=== PATIENT | female | born 1955 | race Caucasian/White ===

== ENCOUNTER → 2017-11-29 | Outpatient (CLI) | payer BC | LOC: RESP 10:06 | PROVIDERS: ATTEND Orthopaedic Surgery | DX: Z01.818 Encounter for other preprocedural examination (principal) ==

== ENCOUNTER → 2017-11-29 | Outpatient (CLI) | payer BC ==
--- NOTE | 2017-11-29 17:57 | RAD ---
EXAM DESCRIPTION: Knee,Left Complete CLINICAL HISTORY: 62 years, Female, PAIN IN LEFT KNEE COMPARISON: None TECHNIQUE: 4 views of the left knee FINDINGS: No fracture or dislocation. Bones appear mildly osteopenic except for sclerosis and eburnation of the medial tibial plateau and medial femoral condyle. Severe narrowing of the medial compartment on standing views with mild flexion. Large osteophytes are seen at the medial more than lateral joint line. Varus configuration of the tibia seen due to complete cartilage loss in the medial compartment. Spurring of the intercondylar notch and tibial spines is noted. Lateral view shows normal position of the patella. No patellar spurring or enthesopathy. No suprapatellar knee joint effusion. Normal contour of quadriceps and patellar tendons. Mild lateral patellar tilt without subluxation on patellar sunrise view. Prominent spurring is seen at the lateral patellofemoral joint. Large medial femoral condylar osteophyte is visible. IMPRESSION: Negative for fracture or dislocation. Severe osteoarthrosis with evidence of long standing complete cartilage loss of the medial compartment. Electronically signed by: Humberto Parry MD 11/29/2017 5:54 PM CDT
--- NOTE | 2017-11-29 18:00 | RAD ---
EXAM DESCRIPTION: Knee,Right Complete CLINICAL HISTORY: 62 years, Female, PAIN IN RIGHT KNEE COMPARISON: None TECHNIQUE: 4 views of the right knee, standing views FINDINGS: No fracture or dislocation. Bones appear mildly osteopenic except for sclerosis and eburnation of the medial femoral condyle. Prominent medial and lateral joint line osteophytes are present with moderate tibial spine spurring. Marked narrowing of the medial more than lateral compartments on frontal view. Lateral view shows normal position of the patella. Prominent patellar spurring without anterior enthesopathy. Prominent anterior femoral trochlear spurring. Small suprapatellar knee joint effusion is suspected. Normal contour of quadriceps and patellar tendons. Prominent spurring of the posterior femoral condyles. Mild lateral patellar tilt without subluxation on patellar sunrise view. Prominent spurring is seen along the lateral patellofemoral joint with prominent medial femoral condylar spur. IMPRESSION: Negative for fracture or dislocation. Advanced osteoarthrosis of the right knee. Electronically signed by: Humberto Parry MD 11/29/2017 5:58 PM CDT
--- NOTE | 2017-11-29 18:01 | RAD ---
EXAM DESCRIPTION: Pelvis CLINICAL HISTORY: 62 years Female, PAIN IN BILATERAL HIPS COMPARISON: None. TECHNIQUE: Single AP view of the pelvis and hips FINDINGS: Severe degenerative changes are seen at the pubic symphysis with vacuum phenomenon and surrounding sclerosis. No fracture of the bones of the pelvis or bony destructive lesion. Degenerative changes are prominent in the inferior right SI joint. Degenerative changes are seen in the lower lumbar spine. Proximal femurs appear intact with no fracture or hip dislocation. IMPRESSION: Negative for fracture or dislocation. Electronically signed by: Humberto Parry MD 11/29/2017 5:59 PM CDT
== END ==
LOC: RAD 08:39
PROVIDERS: ATTEND Orthopaedic Surgery
DX: M17.0 Bilateral primary osteoarthritis of knee (principal); M25.561 Pain in right knee; M25.562 Pain in left knee; M25.551 Pain in right hip; M25.552 Pain in left hip

== ENCOUNTER 2018-01-21 05:42 | Inpatient (IN) | payer BC ==
--- NOTE | 2018-01-20 10:16 | HP ---
CHIEF COMPLAINT: Knee pain. HISTORY OF PRESENT ILLNESS: Jennifer is a 62-year-old female with a history of severe knee pain. She has had conservative measures, however, has failed to gain relief. Because of her failure of relief and difficulty with daily activities, she has requested operative intervention. After discussing the risks, benefits and alternatives to that, the patient has given informed consent for total knee arthroplasty. PAST SURGICAL HISTORY: 1. Cystectomy. 2. Hysterectomy. 3. Appendectomy. 4. Mastectomy. 5. Breast reconstruction. MEDICATIONS: 1. Metformin. 2. Hydrochlorothiazide. 3. Labetalol. 4. Furosemide. 5. Januvia. 6. Anastrazole. 7. Gabapentin. 8. Thyroid medication. 9. Insulin. 10. Lyrica. ALLERGIES: PENICILLIN. CODE STATUS: Full code. IMMUNIZATIONS: Up to date. SOCIAL HISTORY: The patient does not drink, smoke or use any illicit drugs. FAMILY HISTORY: None pertinent to today's complaint. REVIEW OF SYSTEMS: Negative except as indicated in the History of Present Illness. PHYSICAL EXAMINATION: VITAL SIGNS: Blood pressure 169/139. Pulse 81. Height 5'4". Weight 269 pounds. MENTAL STATUS: The patient is awake, alert, and is able to give a good history and participate in the physical. The patient is oriented to person, place and time. SKIN: Normal tone and turgor. HEENT: Normocephalic, atraumatic. Pupils equal, round and reactive. Mucosal membranes are moist. NECK: Normal range of motion. No thyromegaly, no lymphadenopathy. CHEST: Normal respiratory excursion. CARDIAC: Regular rate and rhythm. No murmurs, rubs or gallops. MUSCULOSKELETAL: She has full range of motion in both upper extremities. She has intact sensation in both upper extremities. They are warm and well perfused. There is no deformity and no crepitus. The left lower extremity shows full range of motion of the hip. She has crepitus with range of motion of the knee. She has no varus/valgus or anterior/posterior laxity. Sensation is intact. It is warm and well perfused. She has varus deformity. The right knee shows severe pain with palpation. She has full range of motion of the hip. She has full extension today with flexion to about 115 degrees. There is no varus/valgus or anterior/posterior laxity. There is a varus deformity. IMAGING: X-rays show severe degenerative arthritis with bilateral varus deformity. ASSESSMENT: 1. Osteoarthritis. PLAN: The plan at this point is for total knee arthroplasty. We have discussed the risks, benefits, and alternatives to that and the patient has given informed consent. #[id number] [facility]
[2018-01-21] MEDS ORDERED: TRANEXAMIC ACID 1,000 MG/10 ML VIAL ONE ×2 (06:03→06:04)
[2018-01-21] MEDS ORDERED: ceFAZolin SODIUM 1 GM VIAL ONE ×2 (06:03→06:12)
[2018-01-21] MEDS ORDERED: VANCOMYCIN HCL INJ 1,000 MG VIAL IVPB ONE ×2 (06:03→16:49)
[2018-01-21] MEDS ORDERED: SODIUM CHL 0.9% 100ML MINI-BAG 100 ML IVPB ONE (06:03)
[2018-01-21] MEDS ORDERED: LACTATED RINGERS 1,000 ML ONE ×3 (06:03→09:00)
[2018-01-21] MEDS ORDERED: SODIUM CHLORIDE 0.9% 100ML 100 ML IVPB ONE (06:04)
[2018-01-21] MEDS ORDERED: SODIUM CHLORIDE 0.9% 250ML 250 ML ONE ×2 (06:04→16:48)
[2018-01-21] MEDS ORDERED: MORPHINE SULFATE *EPIDURAL* 0.5 MG/ML VIAL ONE (06:30)
[2018-01-21] MEDS ORDERED: fentaNYL CITRATE INJ 50 MCG/ML AMP ONE (06:30)
[2018-01-21] MEDS ORDERED: MIDAZOLAM INJ 2 MG/2 ML VIAL ONE (06:31)
[2018-01-21] MEDS ORDERED: LIDOCAINE 2 % GEL 5 ML TUBE TOP ONE (06:31)
[2018-01-21] MEDS ORDERED: BISACODYL SUPPOSITORY 10 MG PR PRN (07:16)
[2018-01-21] MEDS ORDERED: MORPHINE SULFATE INJ 10 MG/ML VIAL IM PRN (07:16)
[2018-01-21] MEDS ORDERED: PROMETHAZINE HCL INJ 25 MG in SODIUM CHLORIDE 0.9% 50ML 50 ML IVPB PRN (07:16)
[2018-01-21] MEDS ORDERED: NALOXONE HCL INJ 0.4 MG/ML VIAL IV PRN (07:16)
[2018-01-21] MEDS ORDERED: TEMAZEPAM 15 MG CAP PO PRN (07:16)
[2018-01-21] MEDS ORDERED: MAGNESIUM HYDROXIDE 30 ML UD PO PRN (07:16)
[2018-01-21] MEDS ORDERED: ZOLPIDEM TARTRATE 5 MG TAB PO PRN (07:16)
[2018-01-21] MEDS ORDERED: MORPHINE SULFATE INJ 10 MG/ML VIAL IV PRN (07:16)
[2018-01-21] MEDS ORDERED: ONDANSETRON INJ 4 MG/2 ML VIAL IV PRN (07:16)
[2018-01-21] MEDS ORDERED: ALUMINUM & MAGNESIUM HYDROXIDE 30 ML UD PO PRN (07:16)
[2018-01-21] MEDS ORDERED: DEX 5% W/NACL 0.45% 1000ML 1,000 ML IVS PRN (07:16)
[2018-01-21] MEDS ORDERED: ACETAMINOPHEN 500 MG TAB PO PRN (07:16)
[2018-01-21] MEDS ORDERED: PROMETHAZINE HCL INJ 12.5 MG in SODIUM CHLORIDE 0.9% 50ML 50 ML IVPB PRN (07:16)
[2018-01-21] MEDS ORDERED: BENZOCAINE-MENTH LOZ (CEPACOL) 1 EA LOZ MT PRN (07:16)
[2018-01-21] MEDS ORDERED: TRANEXAMIC ACID INJ 1,000 MG in SODIUM CHLORIDE 0.9% 100ML 100 ML IVPB ONE (07:16)
[2018-01-21] MEDS ORDERED: MORPHINE PCA 1 MG/ML 100 ML BAG IVPB SCH (07:30)
[2018-01-21] MEDS: ceFAZolin SODIUM 1 GM VIAL ONE ×2 (07:43→08:56)
[2018-01-21] MEDS: VANCOMYCIN HCL INJ 1,000 MG VIAL IVPB ONE ×2 (07:44→08:56)
[2018-01-21] MEDS: BUPIVACAINE 0.25% W/EPI 50 ML VIAL INJ ONE ×2 (07:46→09:08)
[2018-01-21] MEDS ORDERED: PROPOFOL 200 MG/20 ML VIAL IV ONE (10:00)
[2018-01-21] MEDS ORDERED: LIDOCAINE 1% 10 ML VIAL INJ ONE (10:00)
[2018-01-21] MEDS ORDERED: METOCLOPRAMIDE HCL INJ 10 MG/2 ML VIAL IV ONE (10:00)
[2018-01-21] MEDS ORDERED: DEXAMETHASONE INJ 10 MG/ML VIAL IV ONE (10:00)
[2018-01-21] MEDS ORDERED: SODIUM CHLORIDE 0.45% 1000ML 1,000 ML IVS PRN (12:14)
[2018-01-21] MEDS ORDERED: DEXTROSE 50% 25 GM/50 ML SYG IV PRN (12:18)
[2018-01-21] MEDS ORDERED: GLUCAGON INJ 1 MG VIAL SUBCU PRN (12:18)
[2018-01-21] MEDS: IV SET AND CAP CHANGE INJ INJ SCH (12:58)
[2018-01-21] MEDS: CELECOXIB 100 MG CAP PO SCH ×2 (12:58→17:37)
[2018-01-21] MEDS: MAGNESIUM OXIDE 400 MG TAB PO SCH (12:59)
--- NOTE | 2018-01-21 13:24 | PN ---
DATE: 01/21/18 SUBJECTIVE: She is doing well. She is comfortable and has excellent pain control right now. OBJECTIVE: She is afebrile. Vital signs stable. Dressing is clean, dry and intact. ASSESSMENT: Status post total knee arthroplasty. PLAN: The plan at this point is to begin weight-bearing as tolerated on postoperative day 1. [facility][id number] [facility]
--- NOTE | 2018-01-21 13:27 | OP ---
DATE OF PROCEDURE: 01/21/18 PREOPERATIVE DIAGNOSIS: 1. Osteoarthritis of the knee. POSTOPERATIVE DIAGNOSIS: 1. Osteoarthritis of the knee. PROCEDURE: 1. Total knee arthroplasty. SURGEON: Juve Suarez MD. UROLOGIST PHYSICIAN: Pa Taylor CST, SA-C. ANESTHESIA: General. COMPLICATIONS: None. FINDINGS: Severe arthritis of the knee with varus deformity. INDICATION: Jennifer has a long history of severe pain in the knee. She has had injections, however, has failed to gain relief. Because of her ongoing pain and failure of relief with conservative measures, she has requested operative intervention. After discussing the risks, benefits and alternatives to that, the patient has given informed consent for total knee arthroplasty. PROCEDURE: The patient was brought to the Operating Room and placed in supine position. General anesthesia was induced and the patient's leg was sterilely prepped and draped. Following prepping and draping, the distal femur was exposed and using an intramedullary guide, the distal femoral cut was made. The appropriate sized cutting block was measured, pinned into place, and the anterior, posterior, and chamfer cuts were made. The ACL was transected and the tibia was subluxed. Both the medial and lateral menisci were removed. An intramedullary guide was used to make the proximal tibial cut. The appropriate sized base plate was placed and a trial polyethylene was placed. The trial femur was placed, the knee was reduced, and the knee was taken through a range of motion. The knee was stable in anterior, posterior, varus and valgus stress. The patella tracked anatomically without evidence of subluxation or dislocation. After trialing, the trial components were removed and the bony surfaces were thoroughly irrigated with saline. Following irrigation, the surfaces were dried and the final components were cemented into place. The excess cement was removed and the remaining cement was allowed to cure. The knee was again taken through a range of motion to confirm stability. The wound was then irrigated with saline and closure was performed using PDS to approximate the arthrotomy followed by closure of the subcutaneous tissues with a combination of running and interrupted Monocryl sutures. Sterile dressing was placed. The patient was awoken from anesthesia and taken to Recovery. POSTOPERATIVE INSTRUCTIONS: The patient will be weight-bearing as tolerated on postoperative day 1. COMPONENTS: [employer] Triathlon knee, size 5 femur, size 5 tibia, 9 mm insert. #[id number] [facility]
--- NOTE | 2018-01-21 13:57 | RAD ---
EXAM DESCRIPTION: Knee,Right 2 or More Views CLINICAL HISTORY: 63 years, Female, TKA COMPARISON: None TECHNIQUE: Two views of the right knee FINDINGS: No fracture or dislocation. Total right knee arthroplasty is present with air in the joint. Normal hardware alignment. No complicating osseous fracture. Patella is normally situated. IMPRESSION: Total right knee arthroplasty. Electronically signed by: Humberto Parry MD 01/21/2018 1:56 PM CDT
[2018-01-21] MEDS: GABAPENTIN 100 MG CAP PO SCH ×2 (14:47→21:42)
[2018-01-21] MEDS ORDERED: ceFAZolin SODIUM 2 GRAMS PREMI 50 ML IVPB ONE ×2 (16:49→20:46)
[2018-01-21] MEDS: ceFAZolin SODIUM 2 GRAMS PREMI 2 GM in PREMIX BAG 1 BAG IVPB SCH (16:52)
[2018-01-21] MEDS: INSULIN LISPRO 100 UNITS/ML PEN SUBCU SCH ×2 (17:27→21:39)
[2018-01-21] MEDS: VANCOMYCIN HCL INJ 1,000 MG in SODIUM CHLORIDE 0.9% 250ML 250 ML IVPB SCH (18:12)
[2018-01-21] MEDS ORDERED: INSULIN GLARGINE 36 UNIT SC SCH (21:00)
--- NOTE | 2018-01-21 21:09 | CONS ---
DATE OF CONSULTATION: 01/21/18 SUPERVISING PHYSICIAN: Ba Dean M.D. HISTORY OF PRESENT ILLNESS: Ms. Jeffers is a 63-year-old female who has longstanding osteoarthritis with severe degenerative changes in her knees resulting in ongoing pain. She had tried multiple efforts at conservative outpatient treatment measures but has failed to receive any significant relief from her pain or any change in her symptoms, therefore she requested elective total knee replacement to assist in pain control. She was admitted today for elective right total knee arthroplasty, surgery performed by Dr. Juve Suarez. The patient was seen in the immediate postoperative state in stable condition. PAST MEDICAL HISTORY: 1. Osteoarthritis of bilateral knees. 2. Hypothyroidism on supplementation,. 3. Depression. 4. Hyperlipidemia. 5. Hypertension. 6. Left breast cancer with mastectomy. 7. Diabetes mellitus on insulin. PAST SURGICAL HISTORY: 1. Mastectomy in 2016 of left breast. 2. Breast reconstruction in 2017 with reduction with repair secondary to infection. 3. Hysterectomy. 4. Appendectomy. HOME MEDICATIONS: 1. Thyroid 90 mg daily. 2. Telmisartan/Hydrochlorothiazide 80-25 mg one daily. 3. Januvia 100 mg daily. 4. Micro-K 10 mEq daily. 5. Metformin 1,000 mg b.i.d. 6. Letrozole 2.5 mg daily. 7. Labetalol 200 mg b.i.d. 8. Lantus SoloStar 36 units at bedtime. 9. Gabapentin. 10. Furosemide 40 mg daily. ALLERGIES: HYDROCODONE, PENICILLIN AND OXYCODONE. FAMILY HISTORY: Significant for breast cancer in multiple female members. SOCIAL HISTORY: The patient is currently disabled. 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 She is . Lives in [place]. She has never smoked and does not drink alcohol. REVIEW OF SYSTEMS: CONSTITUTIONAL: Denies any fevers, chills, fatigue. HEENT: Denies any nasal congestion, sore throat, ear aches, headaches. RESPIRATORY: Denies any cough, shortness of breath. CARDIOVASCULAR: Denies any heart palpitations, syncopal episodes, chest pains, shortness of breath. GASTROINTESTINAL: Denies any diarrhea, constipation or abdominal pains. GENITOURINARY: Denies any dysuria, hematuria or other urinary symptoms. EXTREMITIES: As per history of present illness. NEUROLOGIC: No reported syncope, seizures, ataxia or other neurological deficits. PHYSICAL EXAMINATION: VITAL SIGNS: Temperature 98.7, pulse 75, blood pressure 157/90, heart rate 20, satting 93% on nasal cannula at 2 liters. Admission weight was 95.5 kg. GENERAL: The patient appears to be alert and oriented, resting comfortably with good pain control. CHEST: Lungs are clear to auscultation. HEART: Regular rate and rhythm. ABDOMEN: Soft, non-tender. Positive bowel sounds but obese. EXTREMITIES: Per History of Present Illness. NEUROLOGIC: Cranial nerves II-XII are grossly intact. Facial features are symmetrical. Extraocular movements are within normal limits. There is no nystagmus. LABORATORY STUDIES: White count 12,900 preoperatively with hemoglobin 14.4, hematocrit 41.7. Differential showed to have a mild left shift. Chemistries showed a low potassium 3.2, BUN 23, creatinine 0.98, glucose 158. Postoperatively it had been between 188 and 249. Calcium 2.4. Urinalysis showed to be within normal limits. No microbiology specimens were submitted. RADIOLOGY: No additional radiographic studies were submitted. ASSESSMENT: 1. Immediate postoperative day zero for elective total right knee arthroplasty having failed to respond to conservative outpatient treatment measures with surgery being performed by Dr. Juve Suarez. 2. Osteoarthritis of bilateral knees. 3. Hypothyroidism. 4. Depression. 5. Hyperlipidemia. 6. Hypertension. 7. Diabetes mellitus on insulin. 8. Left breast cancer with mastectomy. PLAN: Will follow the patient as she continues through her rehabilitation and physical therapy efforts. Will monitor her blood sugars and blood pressures closely. Resume her home medications once those have been updated and verified as appropriate. She is on insulin sliding scale per protocol. She is on DVT prophylaxis per protocol. Will anticipate her length of stay to be at least 2 to 3 days and once stable and able to discharge, she will continue with outpatient therapy through her rehabilitation center in [place], [place]. Until then, will continue to monitor and treat appropriately. #[id number] [facility]
[2018-01-21] MEDS: INSULIN DETEMIR 100 UNITS/ML PEN SUBCU SCH (21:40)
[2018-01-21] MEDS: metFORMIN HCL 500 MG TAB PO SCH (21:42)
[2018-01-21] MEDS: traMADol HCL 50 MG TAB PO PRN (21:42)
[2018-01-21] MEDS: DOCUSATE CALCIUM 240 MG CAP PO SCH (21:42)
[2018-01-21] MEDS: LABETALOL 200 MG TAB PO SCH (21:42)
[2018-01-21] MEDS: ENOXAPARIN SODIUM 30 MG/0.3 ML SYG SUBCU SCH (21:42)
--- NOTE | 2018-01-21 22:19 | PCM.CORE ---
Physician DVT/VTE - Nurse DVT Assessment & Total Each Risk Factor Represents 5 Points: Elective Arthtroplasty Each Risk Factor Represents 2 Points: Age 60-74 Each Risk Factor is 1 Point: Obesity (BMI >25) DVT Assessment Score: 8 - 5 or more Very High Risk Treatments: Early Ambulation * Pharmacological: Enoxaparin 30mg SQ BID
[2018-01-22] MEDS: ceFAZolin SODIUM 2 GRAMS PREMI 2 GM in PREMIX BAG 1 BAG IVPB SCH ×2 (00:22→08:25)
[2018-01-22] MEDS ORDERED: SODIUM CHLORIDE 0.9% 250ML 250 ML ONE (03:45)
[2018-01-22] MEDS ORDERED: VANCOMYCIN HCL INJ 1,000 MG VIAL IVPB ONE (03:45)
[2018-01-22] MEDS: traMADol HCL 50 MG TAB PO PRN ×2 (05:45→15:12)
[2018-01-22] MEDS: VANCOMYCIN HCL INJ 1,000 MG in SODIUM CHLORIDE 0.9% 250ML 250 ML IVPB SCH (05:46)
[2018-01-22] MEDS: diphenhydrAMINE HCL 50 MG/ML VIAL IV PRN ×2 (07:02→12:57)
[2018-01-22] MEDS: SODIUM CHLORIDE 0.9% (FLUSH) 10 ML SYG IV PRN ×2 (07:03→20:30)
[2018-01-22] MEDS: THYROID 90 MG PO SCH (07:26)
[2018-01-22] MEDS: INSULIN LISPRO 100 UNITS/ML PEN SUBCU SCH ×4 (07:45→21:04)
[2018-01-22] MEDS: CELECOXIB 100 MG CAP PO SCH ×2 (07:58→16:49)
[2018-01-22] MEDS: metFORMIN HCL 500 MG TAB PO SCH ×2 (07:59→15:01)
[2018-01-22] MEDS ORDERED: ceFAZolin SODIUM 2 GRAMS PREMI 50 ML IVPB ONE (08:18)
[2018-01-22] MEDS: ACETAMINOPHEN 325 MG TAB PO PRN (08:24)
[2018-01-22] MEDS ORDERED: HYDROmorphone HCL INJ 2 MG/ML VIAL ONE (08:41)
[2018-01-22] MEDS: HYDROmorphone HCL INJ 2 MG/ML VIAL IV PRN ×4 (08:46→20:29)
[2018-01-22] MEDS: POTASSIUM CHLORIDE 10 MEQ TAB PO SCH (09:30)
[2018-01-22] MEDS: [UNRECOGNIZED DRUG - OTHER] PO SCH (09:30)
[2018-01-22] MEDS: SITagliptin 50 MG TAB PO SCH (09:30)
[2018-01-22] MEDS: GABAPENTIN 100 MG CAP PO SCH ×3 (09:30→20:31)
[2018-01-22] MEDS: TELMISARTAN HYDROCHLOROTHIAZID PO SCH (09:30)
[2018-01-22] MEDS: FUROSEMIDE 40 MG TAB PO SCH (09:30)
[2018-01-22] MEDS: MAGNESIUM OXIDE 400 MG TAB PO SCH (09:30)
[2018-01-22] MEDS: ENOXAPARIN SODIUM 30 MG/0.3 ML SYG SUBCU SCH ×2 (09:39→22:03)
[2018-01-22] MEDS: LABETALOL 200 MG TAB PO SCH ×2 (09:40→21:23)
--- NOTE | 2018-01-22 11:04 | PN ---
DATE: 01/22/18 SUBJECTIVE: Ms. Jeffers is doing well although she had a little bit of problem with pain control last night. She did have an adverse reaction to the morphine that she was being given. OBJECTIVE: Afebrile. Vital signs stable. Dressing is clean, dry and intact. ASSESSMENT: Status post total knee arthroplasty. PLAN: She is going to begin therapy today. We are going to utilize Dilaudid as an alternative to the morphine. We will continue to encourage range of motion and weight-bearing as tolerated today. [facility][id number] [facility]
--- NOTE | 2018-01-22 13:46 | PN ---
SUPERVISING PHYSICIAN: Ba Dean MD DATE: 01/22/18 SUBJECTIVE: The patient is sitting up in her chair eating her lunch. She has complaints of insomnia and some mild itching, but has improved since she is no longer on the morphine. She denies shortness of breath, chest pain, nausea, vomiting. She felt like her physical therapy went well. OBJECTIVE: VITAL SIGNS: Afebrile. Heart rate 72. Blood pressure 122/74. Respiratory rate 17. O2 saturation 95% on room air. RESPIRATORY: Essentially clear to auscultation bilaterally. Somewhat diminished at the bases. CARDIAC: Regular rate and rhythm. EXTREMITIES: She has an Selvin bandage to her right knee. The bandage is dry and intact. Bilateral pedal pulses are palpable at +2. NEUROLOGIC: Awake, alert and oriented times three. LABORATORY: Hemoglobin 12.4, hematocrit 35.6. Blood sugars have run between 145 and 249. All other labs and films have been reviewed via the EMR. ASSESSMENT: 1. Osteoarthritis of the right knee status post right total knee arthroplasty , postoperative day #1, performed by Dr. Juve Suarez, orthopedic surgeon. 2. Osteoarthritis of bilateral knees. 3. Hypothyroidism. 4. Depression. 5. Hyperlipidemia. 6. Hypertension. 7. Diabetes mellitus on insulin. 8. Left breast cancer with mastectomy. PLAN: We will continue present supportive care. Orthopedic issues will be per Dr. Suarez, orthopedic surgeon. Strengthening and conditioning will continue with physical therapy. I have encouraged the patient to ask for her Restoril for assistance with her sleeping at night. Discharge plans are for her to go to [facility]. Her morphine has been discontinued and she has been changed to Dilaudid which she has tolerated without problems. We are going to try to transition her to tramadol and try to get the Dilaudid discontinued in the next 24 hours. I have encouraged good pulmonary hygiene. We will continue to monitor the patient closely and follow as needed. Dr. Dean is the collaborating physician and available for consultation. #[id number] [facility]
[2018-01-22] MEDS: CYCLOBENZAPRINE HCL 10 MG TAB PO PRN (20:31)
[2018-01-22] MEDS: DOCUSATE CALCIUM 240 MG CAP PO SCH (20:31)
[2018-01-22] MEDS: INSULIN DETEMIR 100 UNITS/ML PEN SUBCU SCH (21:05)
[2018-01-23] MEDS: HYDROmorphone HCL INJ 2 MG/ML VIAL IV PRN ×5 (00:21→12:41)
[2018-01-23] MEDS: traMADol HCL 50 MG TAB PO PRN ×3 (03:02→21:55)
[2018-01-23] MEDS: SODIUM CHLORIDE 0.9% (FLUSH) 10 ML SYG IV PRN ×2 (03:02→06:20)
[2018-01-23] MEDS: THYROID 90 MG PO SCH (06:29)
[2018-01-23] MEDS: INSULIN LISPRO 100 UNITS/ML PEN SUBCU SCH ×4 (07:29→21:04)
[2018-01-23] MEDS: POTASSIUM CHLORIDE 10 MEQ TAB PO SCH (07:35)
[2018-01-23] MEDS: CELECOXIB 100 MG CAP PO SCH ×2 (07:35→17:16)
[2018-01-23] MEDS: metFORMIN HCL 500 MG TAB PO SCH ×2 (07:35→17:16)
[2018-01-23] MEDS: [UNRECOGNIZED DRUG - OTHER] PO SCH (09:52)
[2018-01-23] MEDS: TELMISARTAN HYDROCHLOROTHIAZID PO SCH (09:52)
[2018-01-23] MEDS: NON-FORMULARY MEDICATION 1 EA MIS PO SCH (09:52)
[2018-01-23] MEDS: ENOXAPARIN SODIUM 30 MG/0.3 ML SYG SUBCU SCH ×2 (09:52→21:50)
[2018-01-23] MEDS: FUROSEMIDE 40 MG TAB PO SCH (09:53)
[2018-01-23] MEDS: LABETALOL 200 MG TAB PO SCH ×2 (09:53→21:11)
[2018-01-23] MEDS: SITagliptin 50 MG TAB PO SCH (09:53)
[2018-01-23] MEDS: GABAPENTIN 100 MG CAP PO SCH ×3 (09:53→21:11)
[2018-01-23] MEDS: MAGNESIUM OXIDE 400 MG TAB PO SCH (09:53)
[2018-01-23] MEDS: SODIUM CHLORIDE 0.9% (FLUSH) 10 ML SYG IV SCH ×2 (09:54→21:11)
--- NOTE | 2018-01-23 11:38 | PN ---
SUPERVISING PHYSICIAN: Ba Dean MD DATE: 01/23/18 SUBJECTIVE: The patient was up walking in her room going to the bathroom. She is back in bed at this point. She has not had a bowel movement since Saturday, but has been passing a lot of gas. We also discussed that we would be weaning he off of the IV pain medications and changing her to oral medications. OBJECTIVE: VITAL SIGNS: Afebrile. Heart rate 87. Blood pressure 131/86. Respiratory rate 20. O2 saturation 97% on 1 liter nasal cannula. RESPIRATORY: Essentially clear to auscultation bilaterally. CARDIAC: Regular rate and rhythm. ABDOMEN: Soft, nondistended, nontender. Bowel sounds are positive. EXTREMITIES: She has a dressing to her right knee that is dry and intact. There is minimal swelling around the incision site. Bilateral pedal pulses are palpable. NEUROLOGIC: Awake, alert and oriented times three. LABORATORY: There are no labs or films to report at this time. ASSESSMENT: 1. Osteoarthritis of the right knee status post right total knee arthroplasty , postoperative day #2, performed by Dr. Juve Suarez, orthopedic surgeon. 2. Osteoarthritis of bilateral knees. 3. Hypothyroidism. 4. Depression. 5. Hyperlipidemia. 6. Hypertension. 7. Diabetes mellitus on insulin. 8. Left breast cancer with mastectomy. PLAN: We will continue present supportive care. Strengthening and conditioning will be per physical therapy. Orthopedic issues will be per Dr. Juve Suarez, orthopedic surgeon. I have given her a dose of Milk of Magnesia this afternoon and we will monitor that. We are also getting her physical therapy as an outpatient at [facility]. We are hoping for discharge in the next 2 days. We will continue to monitor the patient closely and follow as needed. Dr. Dean is the collaborating physician and available for consultation. #[id number] [facility]
[2018-01-23] MEDS: CYCLOBENZAPRINE HCL 10 MG TAB PO PRN ×2 (14:28→22:30)
[2018-01-23] MEDS ORDERED: MAGNESIUM HYDROXIDE 30 ML UD PO ONE (16:00)
[2018-01-23] MEDS ORDERED: HYDROmorphone HCL INJ 2 MG/ML VIAL IV PRN (16:41)
[2018-01-23] MEDS: INSULIN DETEMIR 100 UNITS/ML PEN SUBCU SCH (21:05)
[2018-01-23] MEDS ORDERED: INSULIN DETEMIR 100 UNITS/ML PEN SUBCU ONE (21:09)
[2018-01-23] MEDS: DOCUSATE CALCIUM 240 MG CAP PO SCH (21:11)
[2018-01-24] MEDS: traMADol HCL 50 MG TAB PO PRN ×2 (04:07→08:31)
[2018-01-24] MEDS: THYROID 90 MG PO SCH (06:10)
[2018-01-24] MEDS: CYCLOBENZAPRINE HCL 10 MG TAB PO PRN (06:35)
[2018-01-24] MEDS: ACETAMINOPHEN 325 MG TAB PO PRN (06:35)
[2018-01-24] MEDS: CELECOXIB 100 MG CAP PO SCH (07:23)
[2018-01-24] MEDS: INSULIN LISPRO 100 UNITS/ML PEN SUBCU SCH (07:23)
[2018-01-24] MEDS: IV SET AND CAP CHANGE INJ INJ SCH (07:24)
[2018-01-24] MEDS: metFORMIN HCL 500 MG TAB PO SCH (07:24)
[2018-01-24] MEDS: POTASSIUM CHLORIDE 10 MEQ TAB PO SCH (07:24)
--- NOTE | 2018-01-24 08:07 | PN ---
DATE: 01/23/18 SUBJECTIVE: She is doing well. She is up to a chair and pain is well controlled. OBJECTIVE: Afebrile. Vital signs stable. Wound is clean. There are no signs or symptoms of infection. ASSESSMENT: Status post total knee arthroplasty. PLAN: The plan at this point is for her to continue with weight-bearing as tolerated and increasing the CPM. [facility][id number] [facility]
--- NOTE | 2018-01-24 08:09 | PN ---
DATE: 01/24/18 SUBJECTIVE: Jennifer is doing well. She is up to a chair and seems to be mobilizing well. OBJECTIVE: Afebrile. Vital signs stable. Wound is clean. There are no signs or symptoms of infection. ASSESSMENT: Status post total knee arthroplasty. PLAN: The plan at this point is for her to be discharged likely later today or early tomorrow. She will continue physical therapy on an outpatient basis. She will followup with us in approximately 2 weeks. #[id number] [facility]
[2018-01-24] MEDS: SODIUM CHLORIDE 0.9% (FLUSH) 10 ML SYG IV SCH (08:33)
[2018-01-24] MEDS: GABAPENTIN 100 MG CAP PO SCH (08:33)
[2018-01-24] MEDS: FUROSEMIDE 40 MG TAB PO SCH (08:33)
[2018-01-24] MEDS: MAGNESIUM OXIDE 400 MG TAB PO SCH (08:33)
[2018-01-24] MEDS: LABETALOL 200 MG TAB PO SCH (08:33)
[2018-01-24] MEDS: SITagliptin 50 MG TAB PO SCH (08:33)
[2018-01-24] MEDS: NON-FORMULARY MEDICATION 1 EA MIS PO SCH (08:35)
[2018-01-24] MEDS: [UNRECOGNIZED DRUG - OTHER] PO SCH (08:35)
[2018-01-24] MEDS: TELMISARTAN HYDROCHLOROTHIAZID PO SCH (08:35)
[2018-01-24] MEDS ORDERED: RIVAROXABAN 10 MG TAB PO ONE (10:07)
[2018-01-24 10:44] VITALS: BP 115/76; TEMP 98; O2SAT 90
[2018-01-24] MEDS: ENOXAPARIN SODIUM 30 MG/0.3 ML SYG SUBCU SCH (10:45)
[2018-01-24] MEDS ORDERED: BISACODYL SUPPOSITORY 10 MG PR ONE (21:00)
[2018-01-24] MEDS ORDERED: MAGNESIUM HYDROXIDE 30 ML UD PO ONE (21:00)
--- NOTE | 2018-01-24 22:38 | DS ---
SUPERVISING PHYSICIAN: Ba Dean M.D. DISCHARGE DIAGNOSIS: 1. Osteoarthritis of the right knee status post right total knee arthroplasty , postoperative day #3, performed by Dr. Juve Suarez, orthopedic surgeon. 2. Osteoarthritis of bilateral knees. 3. Hypothyroidism on supplementation. 4. Depression on medication. 5. Hyperlipidemia. 6. Hypertension well controlled. 7. Diabetes mellitus on insulin. 8. Left breast cancer with mastectomy. REASON FOR HOSPITALIZATION: Ms. Jeffers is a 63 year-old female patient that resides in [place], [place]. She has a longstanding history of osteoarthritis of both knees with severe degenerative changes bilaterally, but more so on the right. She has had multiple efforts at conservative outpatient treatment measures but has failed to receive any significant relief from pain or any change in her symptoms. She requested elective total knee replacement which was completed on 01/21/[address] Juve Suarez, total right knee arthroplasty. The patient had no complications to her surgery and was followed postoperatively until discharge. LABORATORY: Preoperative H&H was 14.4 and hematocrit 41.7, platelet count 280, 000. Postoperatively H&H was 12.4, hematocrit 35.6. Chemistries postoperatively showed normal electrolytes with BUN 13, creatinine 0.73. Blood sugars were well controlled between 102 and 249. Calcium 8.9. Urinalysis showed to be within normal limits preoperatively. MICROBIOLOGY: MRSA surveillance culture showed negative for Methicillin resistant Staphylococcus aureus. HOSPITAL COURSE: Ms. Jeffers was admitted as noted on 01/21/18 for elective total right knee arthroplasty. She did well through surgery. Had no complications. She had some issues with some pain control due to the fact that she is allergic to Hydrocodone and Oxycodone, and was getting minimal relief with Tramadol. She did require some Dilaudid but was able to deescalate to Tylenol #3 prior to discharge and was doing well with physical therapy. It was felt that she had progressed well enough to be discharged to continue with physical therapy in the outpatient setting. PLAN: Ms. Jeffers was discharged on 01/24/[address] Suarez as scheduled and to continue with her physical therapy and rehabilitation efforts through [facility]. She is to resume her home medications as previous to hospitalization and to start new medications as directed. Wound management is as per Dr. Suarez's postoperative wound care instructions. Diet was diabetic diet. Activity is to increase activity as tolerated with orders per Physical Therapy and weightbearing as tolerated utilizing a walker. Medications at discharge prescribed included: 1. Tylenol #3, 30 mg/300 mg , #60, 1 every 4 hours as needed for pain. 2. Flexeril 10 mg every 8 hours as needed, #15. 3. Xarelto 10 mg daily, #8. Condition on discharge was stable and improved. #[id number] [facility]
[2018-01-25] MEDS ORDERED: NON-FORMULARY MEDICATION 1 EA MIS (Letrozole [Letrozole] 2.5 MG) PO SCH (09:00)
== END 2018-01-24 10:59 | disposition home or self-care (01) | DRG 470 ==
LOC: AMB 05:42 → MS 11:20
PROVIDERS: ADMIT Orthopaedic Surgery; ATTEND Nurse Practitioner Family
PROC: 0SRC0J9 Replacement of Right Knee Joint with Synthetic Substitute, Cemented, Open Approach (ICD-10-PCS; principal; 2018-01-21 07:00)
DX: M17.0 Bilateral primary osteoarthritis of knee (principal); Z68.42 Body mass index [BMI] 45.0-49.9, adult; G89.18 Other acute postprocedural pain; E03.9 Hypothyroidism, unspecified; I10 Essential (primary) hypertension; G47.00 Insomnia, unspecified; E11.9 Type 2 diabetes mellitus without complications; K21.9 Gastro-esophageal reflux disease without esophagitis; E78.5 Hyperlipidemia, unspecified; F32.9 Major depressive disorder, single episode, unspecified; E66.9 Obesity, unspecified; Z88.0 Allergy status to penicillin; Z88.8 Allergy status to other drugs, medicaments and biological substances; Z88.5 Allergy status to narcotic agent; Z79.899 Other long term (current) drug therapy; Z85.3 Personal history of malignant neoplasm of breast; Z79.4 Long term (current) use of insulin; Z90.12 Acquired absence of left breast and nipple

== ENCOUNTER → 2018-04-03 | Outpatient (CLI) | payer BC ==
--- NOTE | 2018-04-03 14:32 | RAD ---
EXAM DESCRIPTION: Chest,2 Views CLINICAL HISTORY: PRE OP COMPARISON: None TECHNIQUE: PA/lateral FINDINGS: Port-A-Cath on the right.. Heart size is normal with normal pulmonary vascularity. No pleural effusion or pneumothorax. Lungs are clear with no consolidating infiltrate. Lateral view shows intact sternum and T-spine. Degenerative changes in the right shoulder. Dextroscoliotic curvature of the T-spine is seen on the right. IMPRESSION: No acute process is identified in the chest. Electronically signed by: Humberto Parry MD 04/03/2018 2:31 PM CDT
== END ==
LOC: YCFC.O 11:38
PROVIDERS: ATTEND Nurse Practitioner Family
DX: Z01.818 Encounter for other preprocedural examination (principal)

== ENCOUNTER → 2019-04-29 | Outpatient (CLI) | payer BC | LOC: LAB.O 08:33 | PROVIDERS: ATTEND Nurse Practitioner Family | DX: Z00.00 Encounter for general adult medical examination without abnormal findings (principal); E13.42 Other specified diabetes mellitus with diabetic polyneuropathy; E03.9 Hypothyroidism, unspecified; E78.5 Hyperlipidemia, unspecified ==

== ENCOUNTER → 2020-02-11 | Outpatient (CLI) | payer BC | LOC: LAB.O 08:50 | PROVIDERS: ATTEND Nurse Practitioner Family | DX: Z00.00 Encounter for general adult medical examination without abnormal findings (principal); E13.42 Other specified diabetes mellitus with diabetic polyneuropathy; E78.5 Hyperlipidemia, unspecified; E03.9 Hypothyroidism, unspecified ==